=== PATIENT | male | born 1940 | race Caucasian/White ===

== ENCOUNTER → 2016-09-21 | Outpatient (CLI) | payer OTHER ==
[~2016-09-21] VITALS: Ht 180.3 cm; Wt 81.6 kg
[~2016-09-21] MED LIST: AMLODIPINE-BEN1 EAC5 PO; COUMADIN 5 MG TA5 M1 PO; COUMADIN7.5 MG PO; ENOXAPARIN80 MG/0.1 SUBQ; HYDROCHLOROTHIA25 M2 PO; LOTREL 10-40 M1 EACH PO; PROSCAR 5MG TABL5 MG PO
[2016-09-21 10:31] VITALS: BP 154/84
[2016-09-21 10:58] LABS: HEMATOCRIT 42.5 % (42.0-52.0); HEMOGLOBIN 13.9 gm/dL (14.0-18.0); MCH 26.5 pg (26.0-34.0); MCHC 32.7 % (28.0-37.0); MCV 80.8 fL (80.0-100.0); RBC 5.25 mil/uL (4.50-6.00); RDW 13.8 % (10.5-14.5); WBC 7.8 thou/uL (4.0-11.0)
[2016-09-21 11:10] LABS: INR 1.1; PROTIME 11.3 Seconds (9.3-11.4)
[2016-09-21 11:13] LABS: CREATININE 1.3 mg/dL (0.6-1.3); POTASSIUM 3.5 mmol/L (3.5-5.1)
== END | disposition home or self-care (01) ==
LOC: LAB 08:51 → SPEC 10:10 → LAB 14:24
PROVIDERS: Radiology Vascular & Interventional Radiology
DX: I26.99 Other pulmonary embolism without acute cor pulmonale (principal); I82.402 Acute embolism and thrombosis of unspecified deep veins of left lower extremity; G47.33 Obstructive sleep apnea (adult) (pediatric)